=== PATIENT | male | born 1980 | race Caucasian/White ===

== ENCOUNTER → 2016-12-31 | Outpatient (CLI) | payer MEDICAID ==
--- NOTE | 2016-12-31 18:32 | US ---
EXAMINATION TYPE: US groin extremity LT DATE OF EXAM: 12/31/2016 5:01 PM COMPARISON: NONE CLINICAL HISTORY: HX LT GROIN HERNIA Z98.890 G89.29. Pain left groin, history of left inguinal hernia surgery 7-8 years ago TECHNOLOGIST IMPRESSION: Multiple lymph nodes noted within area of concern (left groin) with largest = 1.8 x 0.5 x 0.9cm. NO changes noted within left groin with valsalva maneuver. Recommend other moda lity IMPRESSION: Small inguinal lymph nodes are noted that are within normal limits. No evidence of herni a.
== END | disposition home or self-care (01) ==
LOC: RADUSWWP 16:35
PROVIDERS: ATTEND Family Medicine
DX: Z98.890 Other specified postprocedural states (principal)